=== PATIENT | female | born 1995 | race African-American/Black ===

== ENCOUNTER 2020-08-19 01:57 | Emergency (ER) | payer OTHER ==
[2020-08-19 02:39] VITALS: BP 133/74; PULSE 91; TEMP 98.4; BMI 20.9
[2020-08-19] MEDS ORDERED: SODIUM CHLORIDE 1,000 ML IV STA (03:12)
[2020-08-19] MEDS ORDERED: ONDANSETRON 4 MG/2 ML VIAL IVPB ONE (03:13)
[2020-08-19] MEDS ORDERED: ONDANSETRON 4 MG/2 ML VIAL ONE (03:35)
[2020-08-19 03:47] LABS: BASO % 0.6 % (0-2.0); EOS % 0.8 % (0-4.5); HEMATOCRIT 34.6 % (32.4-45.2); HEMOGLOBIN 11.4 GM/dL (10.7-15.3); LYMPH % 19.1 % (8-40); MCH 29.4 pg (25.7-33.7); MEAN CELL VOLUME 89.1 fl (80-96); MEAN PLT VOLUME 8.6 fl (7.5-11.1); MONO % 6.9 % (3.8-10.2); NEUT % 72.6 % (42.8-82.8); PLATELET COUNT 315 K/MM3 (134-434); RBC 3.88 M/mm3 (3.60-5.2); RDW 12.4 % (11.6-15.6); WHITE BLOOD COUNT 8.6 K/mm3 (4.0-10.0)
[2020-08-19 04:05] LABS: POTASSIUM 4.5 mmol/L (3.5-5.1)
[2020-08-19 04:07] LABS: CALCIUM 8.9 mg/dL (8.5-10.1)
[2020-08-19 04:08] LABS: ALBUMIN 3.6 g/dl (3.4-5.0); BLOOD UREA NITROGEN 14.4 mg/dL (7-18)
[2020-08-19 04:11] LABS: CREATININE 0.6 mg/dL (0.55-1.3)
[2020-08-19 04:12] LABS: BILIRUBIN,TOTAL 0.7 mg/dL (0.2-1); TOT PROT 7.1 g/dl (6.4-8.2)
[2020-08-19 05:03] LABS: EPI CELLS 31 /uL (0-25.1); HYALINE CASTS 44 /uL (0-3.1); URINE APPEARANCE CLOUDY; URINE BACTERIA >9,000 /uL (0-1359); URINE BILIRUBIN NEGATIVE (NEGATIVE); URINE COLOR YELLOW; URINE GLUCOSE (UA) NEGATIVE (NEGATIVE); URINE KETONE NEGATIVE (NEGATIVE); URINE LEUK ESTERASE 1+ (NEGATIVE); URINE NITRITE POSITIVE (NEGATIVE); URINE PROTEIN NEGATIVE (NEGATIVE); URINE RBC 10 /uL (0-23.9); URINE WBC 275 /uL (0-25.8)
[2020-08-19] MEDS ORDERED: CEPHALEXIN MONOHYDRATE 500 MG CAPSULE (UD) PO ONE (05:05)
[2020-08-19] MEDS ORDERED: CEPHALEXIN MONOHYDRATE 500 MG CAPSULE (UD) ONE (05:19)
== END 2020-08-19 05:27 | disposition home or self-care (01) ==
LOC: JER 01:57
PROC: 3E033NZ Introduction of Analgesics, Hypnotics, Sedatives into Peripheral Vein, Percutaneous Approach (ICD-10-PCS; principal; 2020-08-19)
PROC: 3E0337Z Introduction of Electrolytic and Water Balance Substance into Peripheral Vein, Percutaneous Approach (ICD-10-PCS; 2020-08-19)
DX: O26.899 Other specified pregnancy related conditions, unspecified trimester (principal); R11.0 Nausea; N30.00 Acute cystitis without hematuria
CPT/HCPCS: 36415; 80053; 81003; 84702; 85025; 87086; 87186; 99284-25

== ENCOUNTER 2021-02-24 00:22 | Emergency (ER) | payer OTHER ==
[2021-02-24 00:53] VITALS: BP 128/82; PULSE 93; TEMP 98.7; BMI 22.4
== END 2021-02-24 01:25 | disposition left against medical advice (07) ==
LOC: JER 00:22
DX: R10.13 Epigastric pain (principal)
CPT/HCPCS: 99281-25

== ENCOUNTER 2021-08-17 00:02 | Emergency (ER) | payer OTHER ==
[2021-08-17 01:24] VITALS: BP 137/70; PULSE 99; TEMP 98.5; BMI 22.7
[2021-08-17] MEDS ORDERED: ACETAMINOPHEN 500 MG TABLET (FP) PO ONE (02:20)
[2021-08-17] MEDS ORDERED: LIDOCAINE 5% TOPICAL PATCH TP ONE (02:20)
[2021-08-17] MEDS ORDERED: ACETAMINOPHEN 325 MG TABLET (FP) ONE (02:35)
[2021-08-17 02:38] LABS: BASO % 0.4 % (0-2.0); EOS % 0.4 % (0-4.5); HEMATOCRIT 30.2 % (32.4-45.2); LYMPH % 9.6 % (8-40); MCH 29.4 pg (25.7-33.7); MCHC 33.2 g/dl (32.0-36.0); MEAN CELL VOLUME 88.4 fl (80-96); MEAN PLT VOLUME 7.6 fl (7.5-11.1); MONO % 8.7 % (3.8-10.2); NEUT % 80.9 % (42.8-82.8); PLATELET COUNT 302 10^3/uL (134-434); RBC 3.42 M/mm3 (3.60-5.2); RDW 13.4 % (11.6-15.6); WHITE BLOOD COUNT 11.3 K/mm3 (4.0-10.0)
[2021-08-17 02:46] LABS: EPI CELLS >36 /uL (0-25.1); HYALINE CASTS 25 /uL (0-3.1); URINE APPEARANCE CLOUDY; URINE BACTERIA >9,000 /uL (0-1359); URINE BILIRUBIN 1+ (NEGATIVE); URINE COLOR DK YELLOW; URINE GLUCOSE (UA) NEGATIVE (NEGATIVE); URINE KETONE 2+ (NEGATIVE); URINE LEUK ESTERASE 2+ (NEGATIVE); URINE NITRITE NEGATIVE (NEGATIVE); URINE PROTEIN TRACE (NEGATIVE); URINE RBC 35 /uL (0-23.9); URINE UROBILINOGEN 4.0 E.U/dl mg/dL (0.2-1.0); URINE WBC 461 /uL (0-25.8)
[2021-08-17] MEDS ORDERED: SODIUM CHLORIDE 0.9% 500 ML INFUS.BAG IV ONE (02:57)
[2021-08-17] MEDS ORDERED: CEFTRIAXONE 1 GM in DEXTROSE 5%-WATER - 100 ML IVPB ONE (02:57)
[2021-08-17 03:08] LABS: CALCIUM 8.9 mg/dL (8.5-10.1)
[2021-08-17 03:09] LABS: ALBUMIN 2.9 g/dl (3.4-5.0); BLOOD UREA NITROGEN 8.5 mg/dL (7-18)
[2021-08-17 03:13] LABS: BILIRUBIN,TOTAL 0.8 mg/dL (0.2-1)
[2021-08-17 03:14] LABS: TOT PROT 6.6 g/dl (6.4-8.2)
[2021-08-17 03:21] LABS: CREATININE 0.6 mg/dL (0.55-1.3)
[2021-08-17] MEDS ORDERED: LIDOCAINE PATCH REMOVAL MC ONE (15:00)
== END 2021-08-17 03:35 | disposition left against medical advice (07) ==
LOC: JER 00:02
DX: O23.42 Unspecified infection of urinary tract in pregnancy, second trimester (principal); Z3A.18 18 weeks gestation of pregnancy
CPT/HCPCS: 36415; 76815-TC; 80053; 81003; 84702; 85025; 87086; 87186; 99284-25

== ENCOUNTER 2021-08-28 21:25 | Inpatient (IN) | payer OTHER ==
[2021-08-28 21:32] VITALS: BMI 22.3
[2021-08-28 22:08] LABS: BASO % 0.1 % (0-2.0); EOS % 0.1 % (0-4.5); HEMATOCRIT 30.6 % (32.4-45.2); HEMOGLOBIN 10.2 GM/dL (10.7-15.3); LYMPH % 4.6 % (8-40); MCH 29.3 pg (25.7-33.7); MCHC 33.5 g/dl (32.0-36.0); MEAN CELL VOLUME 87.5 fl (80-96); MEAN PLT VOLUME 7.6 fl (7.5-11.1); MONO % 10.9 % (3.8-10.2); NEUT % 84.3 % (42.8-82.8); PLATELET COUNT 295 10^3/uL (134-434); RDW 13.3 % (11.6-15.6); WHITE BLOOD COUNT 15.3 K/mm3 (4.0-10.0)
[2021-08-28 22:10] LABS: EPI CELLS 33 /uL (0-25.1); HYALINE CASTS 9 /uL (0-3.1); URINE APPEARANCE CLOUDY; URINE BACTERIA 253 /uL (0-1359); URINE BILIRUBIN 1+ (NEGATIVE); URINE COLOR DK YELLOW; URINE GLUCOSE (UA) NEGATIVE (NEGATIVE); URINE KETONE 3+ (NEGATIVE); URINE LEUK ESTERASE 1+ (NEGATIVE); URINE NITRITE NEGATIVE (NEGATIVE); URINE PROTEIN 2+ (NEGATIVE); URINE WBC 139 /uL (0-25.8)
[2021-08-28] MEDS ORDERED: LACTATED RINGERS SOLUTION 1000 ML INFUS.BAG IV ONE (22:12)
[2021-08-28] MEDS ORDERED: CEFTRIAXONE 1 GM in DEXTROSE 5%-WATER - 100 ML IVPB ONE (22:12)
[2021-08-28] MEDS ORDERED: ACETAMINOPHEN 1000 MG/100 ML BAG IVPB ONE (22:17)
[2021-08-28] MEDS ORDERED: ACETAMINOPHEN INJECTION 100 ML IVPB ONE (22:20)
[2021-08-28 22:31] LABS: CALCIUM 9.2 mg/dL (8.5-10.1)
[2021-08-28 22:32] LABS: ALBUMIN 2.9 g/dl (3.4-5.0); BLOOD UREA NITROGEN 11.7 mg/dL (7-18)
[2021-08-28] MEDS ORDERED: LIDOCAINE 5% TOPICAL PATCH TP ONE (22:33)
[2021-08-28 22:34] LABS: CREATININE 0.6 mg/dL (0.55-1.3)
[2021-08-28 22:37] LABS: BILIRUBIN,TOTAL 1.6 mg/dL (0.2-1)
[2021-08-28] MEDS ORDERED: LIDOCAINE 5% TOPICAL PATCH ONE (22:51)
[2021-08-28] MEDS ORDERED: DEXTROSE 5%-0.45% SALINE 1,000 ML IV SCH (23:45)
[2021-08-29] MEDS: LIDOCAINE PATCH REMOVAL MC SCH ×2 (06:00→22:38)
[2021-08-29] MEDS: ACETAMINOPHEN 325 MG TABLET (FP) PO PRN ×2 (08:15→20:43)
[2021-08-29 08:33] LABS: BASO % 0.1 % (0-2.0); EOS % 0.2 % (0-4.5); LYMPH % 5.3 % (8-40); MCH 29.4 pg (25.7-33.7); MCHC 33.4 g/dl (32.0-36.0); NEUT % 85.4 % (42.8-82.8); PLATELET COUNT 297 10^3/uL (134-434); RDW 13.2 % (11.6-15.6); WHITE BLOOD COUNT 11.2 K/mm3 (4.0-10.0)
[2021-08-29 08:50] LABS: ALBUMIN 2.8 g/dl (3.4-5.0); BLOOD UREA NITROGEN 10.3 mg/dL (7-18)
[2021-08-29 08:52] LABS: CREATININE 0.6 mg/dL (0.55-1.3)
[2021-08-29 08:55] LABS: BILIRUBIN,TOTAL 1.4 mg/dL (0.2-1); TOT PROT 6.6 g/dl (6.4-8.2)
[2021-08-29 08:59] LABS: INR 1.18 (0.83-1.09); PROTHROMBIN TIME (PATIENT) 13.6 SEC (9.7-13.0)
[2021-08-29 09:01] LABS: ACTIVATED PTT 24.5 SECONDS (25.2-36.5)
[2021-08-29] MEDS ORDERED: CEFTRIAXONE 1 GM in DEXTROSE 5%-WATER - 50 ML IVPB SCH (10:00)
[2021-08-29] MEDS ORDERED: cefTRIAXone SODIUM 1 GM VIAL ONE (20:03)
[2021-08-29] MEDS ORDERED: DEXTROSE 5%-WATER - 50 ML IVPB ONE (20:04)
[2021-08-29] MEDS: CEFTRIAXONE 1 GM in DEXTROSE 5%-WATER - 50 ML IVPB SCH (22:10)
[2021-08-30] MEDS: CEFTRIAXONE 1 GM in DEXTROSE 5%-WATER - 50 ML IVPB SCH (22:00)
[2021-08-30] MEDS ORDERED: DEXTROSE 5%-WATER - 50 ML IVPB ONE (22:01)
[2021-08-30] MEDS ORDERED: cefTRIAXone SODIUM 1 GM VIAL ONE (22:01)
[2021-08-31 09:23] LABS: BASO % 0.2 % (0-2.0); EOS % 1.3 % (0-4.5); HEMATOCRIT 25.8 % (32.4-45.2); HEMOGLOBIN 8.8 GM/dL (10.7-15.3); LYMPH % 16.1 % (8-40); MCH 29.5 pg (25.7-33.7); MCHC 33.9 g/dl (32.0-36.0); MEAN CELL VOLUME 87.2 fl (80-96); MEAN PLT VOLUME 7.7 fl (7.5-11.1); MONO % 10.4 % (3.8-10.2); PLATELET COUNT 304 10^3/uL (134-434); RBC 2.96 M/mm3 (3.60-5.2); RDW 12.8 % (11.6-15.6); WHITE BLOOD COUNT 6.5 K/mm3 (4.0-10.0)
[2021-08-31 09:46] LABS: ALBUMIN 2.4 g/dl (3.4-5.0)
[2021-08-31 09:47] LABS: CALCIUM 8.7 mg/dL (8.5-10.1)
[2021-08-31 09:49] LABS: BLOOD UREA NITROGEN 7.6 mg/dL (7-18)
[2021-08-31 09:54] LABS: CREATININE 0.5 mg/dL (0.55-1.3)
[2021-08-31 09:55] LABS: BILIRUBIN,TOTAL 0.8 mg/dL (0.2-1); TOT PROT 5.8 g/dl (6.4-8.2)
[2021-08-31 10:42] VITALS: TEMP 97.9
[2021-08-31] MEDS ORDERED: CEFTAZIDIME PENTAHYDRATE 1 GM in DEXTROSE 5%-WATER - 50 ML IVPB ONE (17:00)
[2021-08-31] MEDS ORDERED: cefTAZidime PENTAHYDRATE 1 GM/50ML PRE-DOCKED (RESTRICTED TO ID) IVPB ONE (17:00)
[2021-08-31 17:30] VITALS: BP 119/76; PULSE 90
== END 2021-08-31 18:01 | disposition home or self-care (01) | DRG 566 ==
LOC: JER 21:25 → JERBED 22:20 → J3W 08-29 05:09
PROVIDERS: ADMIT Internal Medicine; ATTEND Internal Medicine
DX: O23.02 Infections of kidney in pregnancy, second trimester (principal); Z3A.20 20 weeks gestation of pregnancy; N13.30 Unspecified hydronephrosis; M54.50 Low back pain, unspecified; R11.10 Vomiting, unspecified; N12 Tubulo-interstitial nephritis, not specified as acute or chronic; D64.9 Anemia, unspecified; R50.9 Fever, unspecified
CPT/HCPCS: 36415; 76775-TC; 76815-TC; 80053; 81003; 84702; 85025; 85610; 85730; 86780; 86850; 86900; 86901; 87040; 87086; 93005; 93010; 99285-25; C9803; J0131; U0003; U0005

== ENCOUNTER 2021-09-07 10:37 | Emergency (ER) | payer OTHER ==
[2021-09-07 10:54] VITALS: BMI 22.3
[2021-09-07 12:25] LABS: BASO % 0.1 % (0-2.0); EOS % 1.2 % (0-4.5); HEMATOCRIT 29.3 % (32.4-45.2); HEMOGLOBIN 9.9 GM/dL (10.7-15.3); LYMPH % 13.6 % (8-40); MCHC 33.8 g/dl (32.0-36.0); MEAN CELL VOLUME 88.9 fl (80-96); MEAN PLT VOLUME 7.5 fl (7.5-11.1); MONO % 5.4 % (3.8-10.2); NEUT % 79.7 % (42.8-82.8); PLATELET COUNT 374 10^3/uL (134-434); WHITE BLOOD COUNT 11.3 K/mm3 (4.0-10.0)
[2021-09-07 12:37] LABS: EPI CELLS 35 /uL (0-25.1); HYALINE CASTS 2 /uL (0-3.1); PH,URINE 6.5 (5.0-8.0); URINE APPEARANCE CLEAR; URINE BACTERIA 99 /uL (0-1359); URINE BILIRUBIN NEGATIVE (NEGATIVE); URINE COLOR YELLOW; URINE GLUCOSE (UA) NEGATIVE (NEGATIVE); URINE KETONE NEGATIVE (NEGATIVE); URINE LEUK ESTERASE 1+ (NEGATIVE); URINE NITRITE NEGATIVE (NEGATIVE); URINE PROTEIN NEGATIVE (NEGATIVE); URINE RBC 8 /uL (0-23.9); URINE WBC 26 /uL (0-25.8)
[2021-09-07 12:46] LABS: ALBUMIN 2.8 g/dl (3.4-5.0); BLOOD UREA NITROGEN 6.7 mg/dL (7-18); CALCIUM 8.9 mg/dL (8.5-10.1)
[2021-09-07 12:49] LABS: CREATININE 0.5 mg/dL (0.55-1.3)
[2021-09-07 12:51] LABS: BILIRUBIN,TOTAL 0.6 mg/dL (0.2-1); TOT PROT 6.4 g/dl (6.4-8.2)
[2021-09-07 16:14] VITALS: BP 110/64; PULSE 72; TEMP 98.7
== END 2021-09-07 15:50 | disposition home or self-care (01) ==
LOC: JER 10:37
DX: O23.592 Infection of other part of genital tract in pregnancy, second trimester (principal); N12 Tubulo-interstitial nephritis, not specified as acute or chronic; Z3A.21 21 weeks gestation of pregnancy
CPT/HCPCS: 36415; 80053; 81003; 85025; 87086; 99283-25

== ENCOUNTER 2022-01-11 13:50 | Inpatient (IN) | payer OTHER ==
[2022-01-11 15:08] LABS: BASO % 0.1 % (0-2.0); EOS % 0.5 % (0-4.5); HEMATOCRIT 28.7 % (32.4-45.2); HEMOGLOBIN 9.2 GM/dL (10.7-15.3); LYMPH % 17.5 % (8-40); MCH 25.4 pg (25.7-33.7); MCHC 32.1 g/dl (32.0-36.0); MEAN CELL VOLUME 79.1 fl (80-96); MEAN PLT VOLUME 8.2 fl (7.5-11.1); MONO % 7.3 % (3.8-10.2); NEUT % 74.6 % (42.8-82.8); PLATELET COUNT 379 10^3/uL (134-434); RBC 3.63 M/mm3 (3.60-5.2); RDW 15.5 % (11.6-15.6); RETICULOCYTES 2.05 % (0.5-1.5); WHITE BLOOD COUNT 11.8 K/mm3 (4.0-10.0)
[2022-01-11 15:15] LABS: INR 1.01 (0.83-1.09); PROTHROMBIN TIME (PATIENT) 11.6 SEC (9.7-13.0)
[2022-01-11] MEDS ORDERED: ELECTROLYTE-148 SOLN 1,000 ML IV SCH (15:15)
[2022-01-11 15:18] LABS: ACTIVATED PTT 25.5 SECONDS (25.2-36.5)
[2022-01-11] MEDS ORDERED: NALOXONE HCL 0.4 MG/ML VIAL IVPUSH PRN (15:38)
[2022-01-11] MEDS ORDERED: BUPIVACAINE HCL/PF 0.25% (2.5MG/ML) 10 ML VIAL ONE (15:41)
[2022-01-11 15:42] LABS: GAMMA GLUTAMYL TRANSPEPTIDASE 25 U/L (5-85)
[2022-01-11 15:44] LABS: BLOOD UREA NITROGEN 7.3 mg/dL (7-18); CALCIUM 9.5 mg/dL (8.5-10.1)
[2022-01-11 15:45] LABS: SGOT/AST 18 U/L (15-37); SGPT/ALT 13 U/L (13-61)
[2022-01-11 15:47] LABS: CREATININE 0.6 mg/dL (0.55-1.3); URIC ACID 4.4 mg/dL (2.6-7.2)
[2022-01-11] MEDS ORDERED: FENTANYL/BUPIVACAINE/NS/PF - PCEA - 50 ML DISP.SYRIN EP ONE ×2 (15:49→19:01)
[2022-01-11] MEDS: FENTANYL/BUPIVACAINE/NS/PF - PCEA - 50 ML DISP.SYRIN EP SCH ×2 (16:03→19:05)
[2022-01-11 17:30] VITALS: BMI 25.9
[2022-01-11] MEDS ORDERED: OXYTOCIN 30 UNITS in 0.9% NS 30 UNIT/500 ML INFUS.BAG IVPB ONE (17:51)
[2022-01-11] MEDS ORDERED: OXYTOCIN 30 UNITS in 0.9% NS 30 UNIT/500 ML INFUS.BAG IVPB SCH (18:00)
[2022-01-11] MEDS ORDERED: OXYTOCIN 20 UNITS in 0.9% NS 20 UNIT/1,000 ML INFUS.BAG IV ONE (19:27)
[2022-01-11] MEDS ORDERED: ACETAMINOPHEN 325 MG TABLET (FP) PO PRN (20:35)
[2022-01-11] MEDS ORDERED: BISACODYL 10 MG SUPP.RECT RC PRN (20:35)
[2022-01-11] MEDS ORDERED: METHYLERGONOVINE MALEATE 0.2 MG/1 ML AMP IM PRN (20:35)
[2022-01-11] MEDS ORDERED: WITCH HAZEL 50% (TUCKS) 40 PAD/JAR PAD TP PRN (20:35)
[2022-01-11] MEDS ORDERED: IBUPROFEN 600 MG TABLET (FP) PO PRN (20:35)
[2022-01-11] MEDS ORDERED: BENZOCAINE 20% 57 GM BOTTLE TP PRN (20:35)
[2022-01-11] MEDS ORDERED: BENZOCAINE 28 GM HEMORRHOIDAL OINTMENT TP PRN (20:35)
[2022-01-11] MEDS ORDERED: OXYTOCIN 20 UNITS in 0.9% NS 20 UNIT/1,000 ML INFUS.BAG IV SCH (20:45)
[2022-01-11 20:46] LABS: CORD BASE EXCESS -5.6 mmol/L (0-2); CORD HCO3 20.5 mmHg (20-29); CORD PCO2 42.1 mmHg (30-78); CORD pH 7.305 (7.14-7.44)
[2022-01-11 20:50] LABS: CORD PCO2 64.4 mmHg (30-78); CORD pH 7.171 (7.14-7.44)
[2022-01-12 07:11] LABS: BASO % 0.1 % (0-2.0); EOS % 0.2 % (0-4.5); HEMOGLOBIN 8.4 GM/dL (10.7-15.3); MCH 25.4 pg (25.7-33.7); MCHC 32.3 g/dl (32.0-36.0); MEAN CELL VOLUME 78.6 fl (80-96); MEAN PLT VOLUME 8.3 fl (7.5-11.1); MONO % 7.6 % (3.8-10.2); NEUT % 85.1 % (42.8-82.8); PLATELET COUNT 339 10^3/uL (134-434); RBC 3.31 M/mm3 (3.60-5.2); RDW 15.4 % (11.6-15.6); WHITE BLOOD COUNT 16.5 K/mm3 (4.0-10.0)
[2022-01-12] MEDS ORDERED: SENNOSIDES/DOCUSATE COMBO (SENNA PLUS) TABLET (UD) PO PRN (22:00)
[2022-01-13] MEDS: FENTANYL/BUPIVACAINE/NS/PF - PCEA - 50 ML DISP.SYRIN EP SCH (07:17)
[2022-01-13 10:03] VITALS: BP 132/88; PULSE 70; TEMP 98.3
== END 2022-01-13 11:50 | disposition home or self-care (01) | DRG 560 ==
LOC: JDEL 13:50 → JLDR 14:05 → J3W 21:30
PROVIDERS: ADMIT Obstetrics & Gynecology; ATTEND Obstetrics & Gynecology
PROC: 10E0XZZ Delivery of Products of Conception, External Approach (ICD-10-PCS; principal; 2022-01-11)
PROC: 0UQMXZZ Repair Vulva, External Approach (ICD-10-PCS; 2022-01-11)
PROC: 10907ZC Drainage of Amniotic Fluid, Therapeutic from Products of Conception, Via Natural or Artificial Opening (ICD-10-PCS; 2022-01-11)
DX: O70.0 First degree perineal laceration during delivery (principal); O69.81X0 Labor and delivery complicated by cord around neck, without compression, not applicable or unspecified; Z3A.39 39 weeks gestation of pregnancy; Z37.0 Single live birth
CPT/HCPCS: 36415; 36600; 59409; 80048; 82803; 82977; 83010; 84450; 84460; 84550; 85025; 85045; 85610; 85730; 86780; 86850; 86900; 86901; 88307-TC; C9803-CS; U0003; U0005

== ENCOUNTER → 2022-05-30 | Emergency (ER) | payer OTHER ==
[~2022-05-30] MED LIST: LACTATED RINGERS SOLUTION 1000 ML INFUS.BAG IV ONE
[2022-05-30 16:32] VITALS: BP 128/78; PULSE 82; RESP 17; TEMP 98; BMI 21.6
== END | disposition left against medical advice (07) ==
LOC: JER 15:50
DX: R55 Syncope and collapse (principal)
CPT/HCPCS: 99283-25

== ENCOUNTER 2022-11-08 22:00 | Observation (INO) | payer OTHER ==
[2022-11-08 22:33] LABS: EPI CELLS 13 /uL (0-25.1); HYALINE CASTS 1 /uL (0-3.1); URINE APPEARANCE CLEAR; URINE BACTERIA 19 /uL (0-1359); URINE BILIRUBIN NEGATIVE (NEGATIVE); URINE COLOR YELLOW; URINE GLUCOSE (UA) NEGATIVE (NEGATIVE); URINE KETONE 2+ (NEGATIVE); URINE LEUK ESTERASE NEGATIVE (NEGATIVE); URINE NITRITE NEGATIVE (NEGATIVE); URINE PROTEIN 2+ (NEGATIVE); URINE RBC 12 /uL (0-23.9); URINE WBC 18 /uL (0-25.8)
[2022-11-09 00:46] LABS: BASO % 0.2 % (0-2.0); HEMATOCRIT 36.6 % (32.4-45.2); HEMOGLOBIN 12.2 GM/dL (10.7-15.3); LYMPH % 4.8 % (8-40); MCH 27.9 pg (25.7-33.7); MCHC 33.2 g/dl (32.0-36.0); MEAN CELL VOLUME 83.9 fl (80-96); MEAN PLT VOLUME 8.2 fl (7.5-11.1); MONO % 4.5 % (3.8-10.2); NEUT % 90.5 % (42.8-82.8); PLATELET COUNT 328 10^3/uL (134-434); RBC 4.37 M/mm3 (3.60-5.2); RDW 15.4 % (11.6-15.6)
[2022-11-09 01:06] LABS: CALCIUM 9.4 mg/dL (8.5-10.1)
[2022-11-09 01:07] LABS: ALBUMIN 3.8 g/dl (3.4-5.0); BLOOD UREA NITROGEN 9.6 mg/dL (7-18); MAGNESIUM 1.7 mg/dL (1.8-2.4)
[2022-11-09 01:10] LABS: CREATININE 0.8 mg/dL (0.55-1.3)
[2022-11-09 01:12] LABS: BILIRUBIN,TOTAL 2.2 mg/dL (0.2-1); TOT PROT 7.9 g/dl (6.4-8.2)
[2022-11-09] MEDS ORDERED: ACETAMINOPHEN 1000 MG/100 ML BAG IVPB ONE (01:36)
[2022-11-09] MEDS ORDERED: SODIUM CHLORIDE 0.9% 500 ML INFUS.BAG IV ONE (01:36)
[2022-11-09] MEDS ORDERED: ACETAMINOPHEN INJECTION 100 ML IVPB ONE (02:16)
[2022-11-09] MEDS ORDERED: CEFTRIAXONE 1,000 MG in DEXTROSE 5%-WATER - 50 ML IVPB ONE (03:41)
[2022-11-09] MEDS ORDERED: DOXYCYCLINE INJECTION 100 MG in DEXTROSE 5%-WATER 100 ML IVPB ONE (03:41)
[2022-11-09] MEDS ORDERED: DOXYCYCLINE HYCLATE 100 MG VIAL ONE (04:13)
[2022-11-09] MEDS ORDERED: CEFTRIAXONE 1 GM/50 ML BAG ONE (04:13)
[2022-11-09] MEDS ORDERED: ONDANSETRON 4 MG/2 ML VIAL IVPUSH ONE (04:33)
[2022-11-09 09:57] LABS: HCG,QUALITATIVE URINE Negative
[2022-11-09 10:58] LABS: URINE APPEARANCE CLEAR; URINE COLOR YELLOW
[2022-11-09 10:59] LABS: URINE BILIRUBIN NEGATIVE (NEGATIVE); URINE GLUCOSE (UA) NEGATIVE (NEGATIVE); URINE KETONE 15 mg/dl (NEGATIVE); URINE LEUK ESTERASE NEGATIVE (NEGATIVE); URINE NITRITE NEGATIVE (NEGATIVE); URINE PROTEIN TRACE (NEGATIVE)
[2022-11-09] MEDS ORDERED: MAGNESIUM OXIDE 400 MG TABLET (FP) PO ONE (15:45)
[2022-11-09] MEDS ORDERED: MAGNESIUM OXIDE 400 MG TABLET (FP) ONE (15:54)
[2022-11-09] MEDS: DOXYCYCLINE INJECTION 100 MG in DEXTROSE 5%-WATER 100 ML IVPB SCH (18:18)
[2022-11-09] MEDS ORDERED: BENZOCAINE/MENTH/CETYLPYRD CL 1 EACH LOZENGE MM PRN (19:49)
[2022-11-09] MEDS ORDERED: POLYETHYLENE GLYCOL (HEALTHYLAX) 3350 17 GM PACKET PO SCH (22:00)
[2022-11-10] MEDS: DOXYCYCLINE INJECTION 100 MG in DEXTROSE 5%-WATER 100 ML IVPB SCH ×2 (03:22→17:25)
[2022-11-10 07:46] LABS: BASO % 0.3 % (0-2.0); EOS % 2.5 % (0-4.5); HEMATOCRIT 31.4 % (32.4-45.2); HEMOGLOBIN 10.7 GM/dL (10.7-15.3); LYMPH % 21.3 % (8-40); MCH 28.5 pg (25.7-33.7); MCHC 34.2 g/dl (32.0-36.0); MEAN CELL VOLUME 83.3 fl (80-96); MEAN PLT VOLUME 8.7 fl (7.5-11.1); MONO % 6.1 % (3.8-10.2); NEUT % 69.8 % (42.8-82.8); PLATELET COUNT 274 10^3/uL (134-434); RBC 3.76 M/mm3 (3.60-5.2); RDW 15.1 % (11.6-15.6); WHITE BLOOD COUNT 6.4 K/mm3 (4.0-10.0)
[2022-11-10 08:13] LABS: ALBUMIN 3.2 g/dl (3.4-5.0); CALCIUM 8.7 mg/dL (8.5-10.1); MAGNESIUM 1.9 mg/dL (1.8-2.4)
[2022-11-10 08:14] LABS: BLOOD UREA NITROGEN 14.5 mg/dL (7-18)
[2022-11-10 08:16] LABS: CREATININE 0.6 mg/dL (0.55-1.3)
[2022-11-10 08:18] LABS: BILIRUBIN,TOTAL 1.1 mg/dL (0.2-1); TOT PROT 6.7 g/dl (6.4-8.2)
[2022-11-10 08:22] VITALS: RESP 18
[2022-11-10] MEDS ORDERED: NAPH,MB-DB/K PH,MBDB POWDER PACKET PO ONE (08:34)
[2022-11-10] MEDS ORDERED: POTASSIUM CHLORIDE TABS 20 MEQ TABLET.ER (FP) PO ONE (08:34)
[2022-11-10] MEDS ORDERED: diphenhydrAMINE HCL 25 MG CAPSULE (FP) PO ONE (08:35)
[2022-11-10] MEDS: POLYETHYLENE GLYCOL (HEALTHYLAX) 3350 17 GM PACKET PO SCH ×3 (09:40→22:20)
[2022-11-10] MEDS ORDERED: BISACODYL 10 MG SUPP.RECT PR ONE (09:49)
[2022-11-10] MEDS ORDERED: CEFTRIAXONE 1 GM in DEXTROSE 5%-WATER - 50 ML IVPB SCH (10:00)
[2022-11-10] MEDS ORDERED: SODIUM CHLORIDE 1,000 ML IV SCH (12:45)
[2022-11-10] MEDS: GENTAMICIN 80 MG PREMIXED IVPB 80 MG/100 ML BAG IVPB SCH ×2 (13:08→17:34)
[2022-11-11] MEDS: DOXYCYCLINE INJECTION 100 MG in DEXTROSE 5%-WATER 100 ML IVPB SCH ×2 (03:32→16:00)
[2022-11-11] MEDS: GENTAMICIN 80 MG PREMIXED IVPB 80 MG/100 ML BAG IVPB SCH ×2 (04:27→10:49)
[2022-11-11] MEDS: POLYETHYLENE GLYCOL (HEALTHYLAX) 3350 17 GM PACKET PO SCH ×2 (06:30→14:11)
[2022-11-11 08:48] LABS: BASO % 0.4 % (0-2.0); EOS % 4.7 % (0-4.5); HEMOGLOBIN 10.4 GM/dL (10.7-15.3); LYMPH % 30.3 % (8-40); MCH 28.1 pg (25.7-33.7); MCHC 33.6 g/dl (32.0-36.0); MEAN CELL VOLUME 83.7 fl (80-96); MEAN PLT VOLUME 8.5 fl (7.5-11.1); MONO % 5.9 % (3.8-10.2); NEUT % 58.7 % (42.8-82.8); PLATELET COUNT 289 10^3/uL (134-434); RBC 3.71 M/mm3 (3.60-5.2); RDW 15.3 % (11.6-15.6); WHITE BLOOD COUNT 4.5 K/mm3 (4.0-10.0)
[2022-11-11 09:07] LABS: BLOOD UREA NITROGEN 9.9 mg/dL (7-18); CALCIUM 8.7 mg/dL (8.5-10.1); MAGNESIUM 1.8 mg/dL (1.8-2.4)
[2022-11-11 09:10] LABS: PHOSPHOROUS 2.4 mg/dL (2.5-4.9)
[2022-11-11 09:11] LABS: CREATININE 0.7 mg/dL (0.55-1.3)
[2022-11-11 09:12] LABS: BILIRUBIN,TOTAL 0.8 mg/dL (0.2-1); TOT PROT 6.4 g/dl (6.4-8.2)
[2022-11-11] MEDS ORDERED: NAPH,MB-DB/K PH,MBDB POWDER PACKET PO ONE (09:14)
[2022-11-11 14:19] VITALS: BP 136/89; PULSE 69; TEMP 97.4
[2022-11-11] MEDS ORDERED: GENTAMICIN INJECTION 240 MG in DEXTROSE 5%-WATER - 250 ML IM ONE (15:26)
[2022-11-11 15:45] VITALS: BMI 21.9
[2022-11-11] MEDS ORDERED: GENTAMICIN SO4 80 MG/2 ML VIAL IM SCH (16:00)
== END 2022-11-11 16:30 | disposition home or self-care (01) ==
LOC: JER 22:00 → JERBED 11-09 05:22 → J7W 11-09 17:34
PROVIDERS: ADMIT Internal Medicine; ATTEND Internal Medicine
PROC: 3E033NZ Introduction of Analgesics, Hypnotics, Sedatives into Peripheral Vein, Percutaneous Approach (ICD-10-PCS; principal; 2022-11-09)
PROC: 3E03329 Introduction of Other Anti-infective into Peripheral Vein, Percutaneous Approach (ICD-10-PCS; 2022-11-09)
PROC: 3E0337Z Introduction of Electrolytic and Water Balance Substance into Peripheral Vein, Percutaneous Approach (ICD-10-PCS; 2022-11-09)
DX: N73.0 Acute parametritis and pelvic cellulitis (principal); Z88.8 Allergy status to other drugs, medicaments and biological substances; R10.32 Left lower quadrant pain; A54.9 Gonococcal infection, unspecified; K59.00 Constipation, unspecified
CPT/HCPCS: 0241U-QW; 36415; 74177-TC; 76705-TC; 76830-TC; 80053; 81003; 83735; 84100; 84443; 84703; 85025; 86850; 86900; 86901; 87086; 87491; 87591; 87651; 96361; 96365; 96367; 96368; 96375; 99285-25; G0378

== ENCOUNTER 2024-11-29 14:34 | Emergency (ER) | payer OTHER ==
[2024-11-29 14:45] VITALS: BP 134/95; PULSE 80; RESP 16; TEMP 97.9; BMI 21.6
[2024-11-29] MEDS ORDERED: IBUPROFEN 600 MG TABLET (FP) PO ONE (14:56)
[2024-11-29] MEDS: IBUPROFEN 600 MG TABLET (FP) PO ONE (14:59)
== END 2024-11-29 16:45 | disposition home or self-care (01) ==
LOC: JERFT 14:34
DX: S92.521A Displaced fracture of middle phalanx of right lesser toe(s), initial encounter for closed fracture (principal); W51.XXXA Accidental striking against or bumped into by another person, initial encounter
CPT/HCPCS: 73660-TC-FY; 99283-25